=== PATIENT | male | born 1955 | race American Indian/Alaskan Native ===

== ENCOUNTER 2017-09-12 17:05 | Emergency (ER) | payer MEDICAID, SELFPAY ==
[2017-09-12 17:19] VITALS: RESP 20
[2017-09-12 18:26] LABS: BASO % 0.5 % (0.0-2.0); EOS # 0.1 K/uL (0.0-0.7); EOS % 1.5 % (0.0-4.0); HEMATOCRIT 38.1 % (35.0-51.0); LYMPH # 1.7 K/uL (1.0-4.3); LYMPH % 31.4 % (20.0-40.0); MEAN CORPUSCULAR HEMOGLOBIN 28.7 pg (27.0-31.0); MEAN CORPUSCULAR HGB CONC 32.6 g/dL (33.0-37.0); MEAN PLATELET VOLUME 7.7 fL (7.2-11.7); MONO # 0.7 K/uL (0.0-0.8); MONO % 12.9 % (0.0-10.0); NRBC % 0.1 % (0.0-2.0); RED CELL DISTRIBUTION WIDTH 13.6 % (11.5-14.5); WHITE BLOOD COUNT 5.3 K/uL (4.8-10.8)
[2017-09-12 18:33] LABS: MEAN CELL VOLUME 88.3 fL (80.0-94.0)
[2017-09-12 18:39] LABS: INR 1.1
[2017-09-12 18:48] LABS: ALB/GLOB RATIO 1.5 (1.0-2.1); ALKALINE PHOSPHATASE 45 U/L (38-126); ALT/SGPT 36 U/L (21-72); AST/SGOT 37 U/L (17-59); BILIRUBIN,TOTAL 0.7 mg/dL (0.2-1.3); BLOOD UREA NITROGEN 18 mg/dL (9-20); CALCIUM 8.7 mg/dl (8.6-10.4); CARBON DIOXIDE 26 mmol/L (22-30); CHLORIDE 101 mmol/L (98-107); GFR AFRICAN-AMERICAN > 60; GLUCOSE,RANDOM 94 mg/dL (75-110); POTASSIUM 4.6 mmol/L (3.6-5.2); SODIUM 136 mmol/L (132-148); TOTAL PROTEIN 7.2 g/dL (6.3-8.3)
--- NOTE | 2017-09-12 19:32 | C.PDOC ---
History Of Present Illness 62 y/o male comes in for evaluation of bright red right eye redness that for the past 3 days. Patient does not recall if he injured his eye stating, "maybe he hit his eye with his glasses". Patient denies heavy lifting, visual changes, fever, chills, or any other injuries. Chief Complaint (Nursing): ENT Problem History Per: Patient History/Exam Limitations: no limitations Onset/Duration Of Symptoms: Days Current Symptoms Are (Timing): Still Present Severity: Mild Associated Symptoms: denies: Decreased Vision Recent travel outside of the [place]: No Additional History Per: Patient Past Medical History Reviewed: Historical Data, Nursing Documentation, Vital Signs Vital Signs: Last Vital Signs Temp 98.3 F 09/12/17 19:47 Pulse 60 09/12/17 19:47 Resp 20 09/12/17 19:47 BP 147/81 09/12/17 19:47 Pulse Ox 96 09/12/17 22:10 Family History: States: Unknown Family Hx - Social History Hx Alcohol Use: Yes Hx Substance Use: No (PRIOR) - Immunization History Hx Tetanus Toxoid Vaccination: No Hx Influenza Vaccination: No Hx Pneumococcal Vaccination: No Review Of Systems Except As Marked, All Systems Reviewed And Found Negative. Constitutional: Negative for: Fever, Chills, Other (Heavy lifting) Eyes: Positive for: Redness. Negative for: Vision Change Physical Exam - Physical Exam Appears: Non-toxic, No Acute Distress Skin: Warm, Dry Head: Atraumatic, Normacephalic Eye(s): bilateral: PERRL, EOMI, right: Other (Right sided subconjuntival hemorrhage. Normal visual acuity), left: Normal Inspection Nose: Normal, No Discharge Oral Mucosa: Moist Neck: Normal ROM, No Midline Cervical Tenderness, No Paracervical Tenderness Lymphatic: Normal Exam Chest: Symmetrical, No Deformity, No Tenderness Cardiovascular: Rhythm Regular Respiratory: Normal Breath Sounds Neurological/Psych: Oriented x3, Normal Speech, Normal Cognition, Normal Cranial Nerves ED Course And Treatment - Laboratory Results Result Diagrams: 09/12/17 18:12 09/12/17 18:12 O2 Sat by Pulse Oximetry: 96 Pulse Ox Interpretation: Normal Progress Note: Blood labs, IV fluids. Patient is in no acute distress at this time. Patient was given artificial tears and was instructed to follow up with their PMD and Head Cager within 1-2 days and to return if symptoms worsens. Disposition - Disposition Referrals: Omar Menard [Staff Provider] - Disposition: HOME/ ROUTINE Disposition Time: 19:30 Condition: STABLE Additional Instructions: Follow up with Head Cager within 1-2 days. Return to ED if feel worse. Prescriptions: Dextran 70/Hypromellose [Artificial Tears Eye Drops] 1 drop OP Q2 #1 bot Instructions: Subconjunctival Hemorrhage (ED) Forms: [id number] (I[place]ic) - Clinical Impression Clinical Impression: Subconjunctival hemorrhage - Scribe Statement The provider has reviewed the documentation as recorded by the Scribe Jerrell parnell All medical record entries made by the Scribe were at my direction and personally dictated by me. I have reviewed the chart and agree that the record accurately reflects my personal performance of the history, physical exam, medical decision making, and the department course for this patient. I have also personally directed, reviewed, and agree with the discharge instructions and disposition.
[2017-09-12 19:48] VITALS: BP 147/81; PULSE 60; TEMP 98.3
[2017-09-12 22:20] VITALS: O2SAT 96
== END 2017-09-12 19:50 | disposition home or self-care (01) ==
LOC: C.ER 17:05
DX: H11.31 Conjunctival hemorrhage, right eye (principal)